=== PATIENT | male | born 1985 | race Caucasian/White ===

== ENCOUNTER → 2019-08-04 | Outpatient (CLI) | payer BC | LOC: COL.RAD 07-17 08:00 | DX: M16.11 Unilateral primary osteoarthritis, right hip (principal); S73.191A Other sprain of right hip, initial encounter | CPT/HCPCS: A9585; Q9967 ==

== ENCOUNTER → 2019-08-10 | Outpatient (CLI) | payer BC | LOC: COL.RAD 08:44 | DX: M25.551 Pain in right hip (principal) | CPT/HCPCS: J3301; Q9967 ==

== ENCOUNTER 2019-09-05 10:54 | Emergency (ER) | payer BC ==
[~2019-09-05] VITALS: Ht 177.8 cm; Wt 84.1 kg
[2019-09-05 10:56] VITALS: TEMP 97.9
[2019-09-05 11:24] LABS: BASO % 0.4 % (0.0-2.0); EOS # 0.2 (0.0-0.7); EOS % 3.1 % (0-4.0); GRAN # 5.7 (1.4-6.5); GRAN % 76.9 % (42.2-75.2); HEMATOCRIT 46.5 % (42.0-52.0); HEMOGLOBIN 15.8 g/dl (13.5-18.0); LYMPH % 13.1 % (20.0-51.0); MEAN CELL VOLUME 89 fl (80.0-100.0); MEAN CORPUSCULAR HEMOGLOBIN 30 pg (27.0-31.0); MEAN CORPUSCULAR HGB CONC 34 g/dl (33.0-37.0); MEAN PLATELET VOLUME 9.3 fl (7.4-10.4); MONO # 0.5 (0.1-0.6); MONO % 6.2 % (1.7-9.3); PLATELET COUNT 152 K/mm3 (130-400); RED BLOOD COUNT 5.22 M/mm3 (4.20-5.60); REDCELL DISTRIBUTION WIDTH-CV 11.6 % (11.5-14.5)
[2019-09-05 11:38] LABS: ALBUMIN 4.4 gm/dL (3.5-5.0); BILIRUBIN,TOTAL 0.7 mg/dL (0.0-1.0); C-REACTIVE PROTEIN 0.6 mg/dL (0.0-0.9); CALCIUM 9.1 mg/dL (8.4-10.2); CREATININE, serum 1.09 (0.66-1.25); POTASSIUM 4.2 mmol/L (3.4-5.0); TOTAL PROTEIN 7.2 gm/dL (6.4-8.2)
[2019-09-05] MEDS ORDERED: VITAMINC1000TA (11:41)
[2019-09-05] MEDS ORDERED: VITAMIND3 5000 (11:41)
[2019-09-05] MEDS ORDERED: EPA FISH OIL1 SGL PO (11:41)
[2019-09-05] MEDS ORDERED: MAGNESIUM200 MG (11:42)
[2019-09-05] MEDS ORDERED: PROTONIX 40MG T40 MG PO (12:18)
[2019-09-05] MEDS ORDERED: ZOFRAN ODT4 MG PO (12:18)
[2019-09-05 12:38] VITALS: BP 118/67; PULSE 81
== END 2019-09-05 12:39 | disposition home or self-care (01) ==
LOC: COL.ER 10:54
PROVIDERS: Emergency Medicine
DX: R10.13 Epigastric pain (principal); R11.2 Nausea with vomiting, unspecified
CPT/HCPCS: C9113; J1885; J2405; J7030

== ENCOUNTER 2019-09-15 15:33 | Emergency (ER) | payer BC ==
[~2019-09-15] VITALS: Ht 177.8 cm; Wt 84.1 kg
[~2019-09-15 15:33] MED LIST: EPA FISH OIL1 SGL PO; MAGNESIUM200 MG; PROTONIX 40MG T40 MG PO; VITAMINC1000TA; VITAMIND3 5000; ZOFRAN ODT4 MG PO
[2019-09-15 15:40] VITALS: TEMP 97.6
[2019-09-15 16:08] LABS: BASO % 0.3 % (0.0-2.0); EOS # 0.3 (0.0-0.7); EOS % 2.1 % (0-4.0); GRAN # 12.4 (1.4-6.5); GRAN % 83.7 % (42.2-75.2); HEMATOCRIT 51.5 % (42.0-52.0); HEMOGLOBIN 17.5 g/dl (13.5-18.0); LYMPH # 1.2 (1.2-3.4); MEAN CELL VOLUME 89 fl (80.0-100.0); MEAN CORPUSCULAR HEMOGLOBIN 30 pg (27.0-31.0); MEAN CORPUSCULAR HGB CONC 34 g/dl (33.0-37.0); MEAN PLATELET VOLUME 9.3 fl (7.4-10.4); MONO # 0.8 (0.1-0.6); MONO % 5.4 % (1.7-9.3); PLATELET COUNT 214 K/mm3 (130-400); RED BLOOD COUNT 5.82 M/mm3 (4.20-5.60); REDCELL DISTRIBUTION WIDTH-CV 11.6 % (11.5-14.5)
[2019-09-15 16:17] LABS: ALANINE AMINOTRANSFERASE 21 U/L (21-72); ALBUMIN 4.7 gm/dL (3.5-5.0); ALKALINE PHOSPHATASE 110 U/L (50-136); ANION GAP 13 mmol/L (7-16); AST,SGOT 36 U/L (15-37); BILIRUBIN,TOTAL 0.9 mg/dL (0.0-1.0); BLOOD UREA NITROGEN 16 mg/dL (9-20); CALCIUM 9.3 mg/dL (8.4-10.2); CARBON DIOXIDE 25 mmol/L (22-30); CHLORIDE 102 mmol/L (98-107); CREATININE, serum 1.07 (0.66-1.25); GLUCOSE 94 mg/dL (74-106); LIPASE 34 U/L (23-300); POTASSIUM 3.8 mmol/L (3.4-5.0); SODIUM 139 mmol/L (137-145); TOTAL PROTEIN 7.6 gm/dL (6.4-8.2)
[2019-09-15 16:25] LABS: C-REACTIVE PROTEIN < 0.5 mg/dL (0.0-0.9)
[2019-09-15 17:19] VITALS: BP 118/72; PULSE 85
== END 2019-09-15 17:21 | disposition home or self-care (01) ==
LOC: COL.ER 15:33
PROVIDERS: Family Medicine
DX: K52.9 Noninfective gastroenteritis and colitis, unspecified (principal)
CPT/HCPCS: C9113; J2405; J7030; Q9967